=== PATIENT | female | born 2005 | race African-American/Black ===

== ENCOUNTER 2024-11-03 13:52 | Emergency (ER) | payer MEDICAID, SELFPAY ==
[2024-11-03 13:54] VITALS: BP 119/70; PULSE 86; RESP 16; TEMP 38.6; O2SAT 100; BMI 26.8
--- NOTE | 2024-11-03 14:31 | US_ITS ---
PROCEDURE: TRANSVAGINAL NON- 11/03/2024 REASON FOR EXAM: PELVIC PAIN, FEVER TECHNIQUE: Transvaginal pelvic ultrasound. Color and spectral doppler analysis of the ovaries. COMPARISON: None. FINDINGS: Measurements: Uterus: 8.8 x 3.7 x 6.7 cm for volume of 113.1 mL Endometrial Thickness: 3 mm Right Ovary: 3.3 x 1.9 x 1.9 cm for volume of 6.4 mL Left Ovary: 3.0 x 1.9 x 1.7 cm for volume of 4.9 mL Uterus: Anteverted. Normal contour and myometrial echotexture. Nabothian cysts at the cervix. Endometrium: Normal echotexture. Right ovary: Normal size and echotexture. Left ovary: Normal size and echotexture. Other adnexal findings: None. Cul-de-sac: Small volume of free fluid in the pelvis within normal limits, likely physiologic. DOPPLER: Color Doppler: Normal color flow doppler signal at both ovaries. Spectral Doppler: Normal arterial inflow and venous outflow signal at both ovaries. US/Transvaginal Non- IMPRESSION: UNREMARKABLE TRANSVAGINAL PELVIC ULTRASOUND WITH DOPPLER. Reading Location: [id number]
--- NOTE | 2024-11-03 14:32 | CT_ITS ---
PROCEDURE: ABDOMEN/PELVIS W IV CONT ONLY 11/03/2024 REASON FOR EXAM: RLQ PAIN TECHNIQUE: Abdomen and pelvis CT with intravenous contrast. Coronal and Sagittal reconstruction series were provided. CONTRAST: Isovue-300 VOLUME: 100 mL One or more dose reduction techniques were used (e.g., Automated exposure control, adjustment of the mA and/or kV according to patient size, use of iterative reconstruction technique. RADIATION DOSE SUMMARY: DLP: 524 mGycm COMPARISON: None. FINDINGS: Lung bases: Normal Liver: Normal size. No mass. Gallbladder: Normal Spleen: Normal Pancreas: Normal Adrenals: Normal Kidneys: Normal Bladder: Normal Reproductive Organs: Normal Bowel: Normal Appendix: The appendix is normal in caliber (sagittal image 65 of 155). However assessment of periappendiceal inflammatory change is limited due to lack of mesenteric fat. Lymph nodes: Enlarged right lower quadrant mesenteric lymph nodes. Vasculature: Normal Peritoneum / Retroperitoneum: Small volume free fluid in the pelvis. Bones: No acute abnormalities. CT/Abdomen/Pelvis W IV Cont ONLY IMPRESSION: Appendix is normal in caliber however, adjacent inflammation can not be assesse d due to lack of mesenteric fat. However, there are enlarged right lower quadrant mesenteric lymph nodes which can be a seconda ry sign of acute appendicitis. Small volume free fluid in the pelvis. OVERALL FINAL ASSESSMENT: . LI-RADS is not meant to be used in patients <18 years or patients with cirrhosi s due to congenital hepatic fibrosis or due to vascular disorders, because these patients have a lower chance of developing HC C. Reading Location: [place] [id number]
--- NOTE | 2024-11-03 14:33 | ED.VIS.GI ---
HPI HPI - GI History of Present Illness Chief Complaint: Abd Pain Informant: patient and parent Narrative Narrative: 3-day history. Worsening abdominal pain. Started upper quadrants last 2 days is down in the right lower quadrant. She noted some chills. She is 5 months . No abdominal surgeries in the past. She gave in [place]. Seen in urgent care had fever there was sent here for evaluation. She states she noted some dysuria that started yesterday. In addition she states she has bacterial vaginosis diagnosed clinically a week ago. She called her sr community manager sent in Flagyl however she cannot swallow the pills. She had chlamydia years ago none during . No nausea or vomiting. Normal bowel movements last time yesterday. No bloody stools. No history of similar. She took her mom's meloxicam around 11 AM. She does not eat today. She states she has been spotting since earlier this month which is increased to bleeding. Feels like her menstrual period. This is abnormal for her. Reported vaginal delivery with her baby. Prior similar symptoms: No PFSH PFSH Allergy/AdvReac Type Severity Reaction Status Date / Time No Known Allergies Allergy Verified 11/03/24 13:57 Social History Smoking Status: Unknown if ever smoked ROS ROS ED Constitutional Constitutional ED: Reports chills; Denies fever(s) or sweats ENT ENT ED: Denies sore throat Cardiovascular Cardiovascular: Denies chest pain, leg edema, palpitations or racing heartbeat Respiratory/Chest Respiratory/Chest: Denies cough, dyspnea or dyspnea on exertion Gastrointestinal Gastrointestinal: Reports abdominal pain; Denies diarrhea, nausea or vomiting Genitourinary Genitourinary ED: Reports dysuria and other Details: Vaginal discharge ; Denies hematuria or urinary frequency Musculoskeletal Musculoskeletal: Denies back pain, extremity pain or neck pain Integumentary Denies rash or wounds Neurologic Neurologic: Denies headache(s), paresthesias or weakness EXAM Physical Exam Const Vital Signs: 11/03/24 13:54 11/03/24 15:53 11/03/24 17:00 Temperature 101.5 F H Temperature Source Oral Pulse Rate 86 59 L 59 L Respiratory Rate 16 14 14 Blood Pressure 119/70 128/61 H 126/59 H Blood Pressure Mean 86 83 81 Pulse Ox 100 98 98 Oxygen Delivery Method Room Air Room Air Room Air 11/03/24 18:00 11/03/24 19:19 Temperature 97.9 F Temperature Source Pulse Rate 61 86 Respiratory Rate 14 14 Blood Pressure 122/69 H 117/73 Blood Pressure Mean 86 87 Pulse Ox 98 100 Oxygen Delivery Method Room Air Positive well nourished and well developed General Appearance ED: well developed and NAD HEENT Reports moist mucous membranes normocephalic and atraumatic Eyes General Eye ED: Yes normal appearance of both eyes Neck full ROM Chest Wall Chest: Negative for tenderness Resp normal respiratory effort and normal air movement Effort and Inspection: symmetric chest movement; Negative for respiratory distress Cardio regular rate, regular rhythm and no murmurs Peripheral Pulses: pulses 2+ throughout GI normal to inspection, nondistended, normoactive bowel sounds GI Narrative: Negative Salgado's there is tenderness right lower quadrant minimal tenderness right pelvis. Negative Rovsing's. Palpation: Negative for guarding or rebound tenderness present Narrative: [employer] Consultant by female staff: External exam with no lesions. Speculum examination pink fluid in the vault mild. No discharge noted. Swabs for wet prep and GC chlamydia obtained. Extremity normal to inspection General Extremety ED: Negative for edema or tenderness General Extremity: Negative for edema Neuro oriented x3 and no sensory deficits noted Sensorium / Orientation: awake and alert Skin no rashes or lesions noted and no wounds MDM MDM MDM Narrative Medical decision making narrative: Interventions / MDM: Differential diagnosis: Fever, abdominal pain, mesenteric adenitis Diagnosis considered but do not suspect: UTI however urine negative. Tubo-ovarian abscess however ultrasound negative, GC chlamydia negative. My EKG interpretation: N/A Imaging independently reviewed and interpreted by myself: Pelvic ultrasound: No acute process. CT abdomen pelvis IV contrast: Normal appendix no stranding, there was mesenteric adenitis read by radiology. External documents reviewed: N/A Test considered but not ordered:N/A ED course: Febrile 101.5 nontoxic blood pressure stable. No cough symptoms. Dysuria started yesterday. Pain upper abdomen 3 days ago rating down her right lower quadrant 2 days ago. Primary pain in the right lower quadrant mild pain right pelvis. Discussed with patient with her vaginosis symptoms a week ago. Additional rule out pelvic pathology. She agrees with pelvic exam this will be set up. Will send for transvaginal ultrasound edition abdominal labs with CT abdomen pelvis to rule out appendicitis. IV fluids given, p.o. Tylenol for her fever. 1510: Speculum examination pain with lock stitch channeler. Swabs were obtained and sent. Wet prep negative GC chlamydia negative urine negative. Transvaginal ultrasound negative. White count normal at 10.9. CT scan abdomen pelvis mesenteric adenitis normal appendix, per radiology however noted mesenteric lymph node could be secondary sign appendicitis. Clinically on reevaluation after Tylenol her symptoms are improved.'s only minimal symptoms. I discussed with on-call surgeon Dr. Reyes, discussed history 3 days of symptoms, discussed negative pelvic workup and CT readings. He evaluated images himself, appears to have normal appendix, we agree with 3 days of symptoms and this should declare itself. Clinically she is much more improved also. Barraza score is a 3. Plan of care discussed with patient agrees monitoring symptoms of pain worsening is developing vomiting anorexia or diarrhea, return to the ED for reevaluation for additional contrast imagings. All questions were answered. Re-evaluation: stable Disposition discussed with patient/family/significant other: Patient and mother Case discussed with consulting clinician: General Surgery This note was generated with [employer] dictation software. It may contain incorrect words, spelling, and punctuation that were not noted in checking the note before signing. Lab Data Attestation: I reviewed the patient's lab results. Labs: Laboratory Results - last 24 hr 11/03/24 11/03/24 15:25 16:13 WBC 10.9 RBC 3.49 L Hgb 11.0 L Hct 32.6 L MCV 93.4 MCH 31.5 MCHC 33.7 RDW Std Deviation 45.1 H RDW Coeff of Sharri 13.2 Plt Count 278 MPV 9.5 Immature Gran % (Auto) 0.300 Neut % (Auto) 70.2 H Lymph % (Auto) 16.7 L [place] % (Auto) 12.5 H Eos % (Auto) 0.0 Baso % (Auto) 0.3 Absolute Neuts (auto) 7.7 Absolute Lymphs (auto) 1.83 Nucleated RBC % 0 Sodium 135 Potassium 3.6 Chloride 103 Carbon Dioxide 21.7 Anion Gap 11 BUN 9 Creatinine 0.70 Estim Creat Clear Calc 109.30 Est GFR (MDRD) Non-Af 125 BUN/Creatinine Ratio 12.5 Glucose 93 Calcium 8.6 Total Bilirubin 0.35 AST 18 ALT 9 Alkaline Phosphatase 54 Total Protein 7.2 Albumin 3.8 Globulin 3.5 Albumin/Globulin Ratio 1.1 Lipase 18 Urine Color Yellow Urine Clarity Cloudy Urine pH 7.0 Ur Specific [place] 1.010 Urine Protein 30 H Urine Glucose (UA) Normal Urine Ketones Negative Urine Occult Blood 25 H Urine Nitrite Negative Urine Bilirubin 1 H Urine Urobilinogen 1 H Ur Leukocyte Esterase 25 H Urine RBC 0-5 SEEN Urine WBC 0-5 SEEN Ur Squamous Epith Cells 0-5 SEEN Urine Bacteria 0 SEEN Urine Mucus 0 SEEN Urine Test Negative Radiography Diagnostic Testing: Clinical Impression(s) from Imaging Studies Transvaginal US 11/03/24 14:31 IMPRESSION: UNREMARKABLE TRANSVAGINAL PELVIC ULTRASOUND WITH DOPPLER. Reading Location: [id number] Abdomen/Pelvis CT 11/03/24 14:32 IMPRESSION: Appendix is normal in caliber however, adjacent inflammation can not be assessed due to lack of mesenteric fat. However, there are enlarged right lower quadrant mesenteric lymph nodes which can be a secondary sign of acute appendicitis. Small volume free fluid in the pelvis. OVERALL FINAL ASSESSMENT: . LI-RADS is not meant to be used in patients <18 years or patients with cirrhosis due to congenital hepatic fibrosis or due to vascular disorders, because these patients have a lower chance of developing HCC. Reading Location: [id number] Discharge Plan Triage Chief Complaint: Abd Pain ED Provider: Feliciano Rios Dx/Rx/DC Orders Clinical Impression: Mesenteric adenitis, Abdominal pain, Fever Instructions: Abdominal Pain, ED Fever Control (Adult), ED Adenitis, Mesenteric Stand Alone Forms: ED Work / School Excuse Primary Care Provider: Care Physician,No Primary Referrals: Care Physician,No Primary [Primary Care Provider] - Puja Leija DO Bhargavi [[facility]] - 1-2 Weeks Activity Restrictions/Additional Instructions: CT scan normal appendix. Pelvic ultrasound normal. Chlamydia and gonorrhea testing negative. Negative for trichomonas or bacterial vaginosis. Urine negative for infection. CT with enlarged mesenteric lymph nodes consistent with mesenteric adenitis. Continue Tylenol and Motrin as needed. You develop worsening symptoms return to the ED for reevaluation. Print Language: Frisian Disposition Disposition: Home, Self Care Discharge Date/Time: 11/03/24 19:21
[2024-11-03] MEDS: Acetaminophen 500 MG Tablet 1000 MG PO (14:44)
[2024-11-03] MEDS: 0.9% Normal Saline (1000mL) 1,000 ML 999 ML IV (15:27)
[2024-11-03 15:40] LABS: Absolute Lymphocyte Count 1.83 X10^3/uL (0.83-4.51); Absolute Neutrophil Count 7.7 X10^3/uL (2.0-7.7); Basophil# 0.03 X10^3/uL; Basophil% 0.3 % (0-1); Hematocrit 32.6 % (37-47); Lymphocyte # 1.83 X10^3/ul (0.83-4.51); Lymphocyte % 16.7 % (19-41); Mean Corp Hgb Conc 33.7 g/dL (32-36); Mean Corpuscular Hgb 31.5 pg (27.0-32.0); Mean Corpuscular Volume 93.4 fL (81-99); Mean Platelet Vol. 9.5 fl (6.2-12.0); Monocyte# 1.37 X10^3/uL; Monocyte% 12.5 % (0-10); NRBC Flagged by Analyzer 0 % (0-5); Neutrophil # 7.68 X10^3/uL (2.7-7.7); Neutrophil % 70.2 % (47-70); Platelet Count 278 K/mm3 (150-450); RBC Distribution Width CV 13.2 % (11.6-14.6); RBC Distribution Width SD 45.1 fl (35.1-43.9); Red Blood Count 3.49 M/mm3 (4.2-5.4); White Blood Count 10.9 K/mm3 (4.4-11.0)
[2024-11-03 15:53] VITALS: BP 128/61; PULSE 59; RESP 14; O2SAT 98
[2024-11-03 16:00] LABS: ALB/GLOB Ratio 1.1 RATIO (0.9-2.4); AST(SGOT) 18 U/L (<=31); Alanine Aminotransfer ALT/SGPT 9 U/L (<=34); Albumin, Serum 3.8 g/dL (3.5-5.0); Alkaline Phosphatase 54 U/L (35-104); Anion Gap 11 (5-15); BUN 9 mg/dL (4-19); BUN/Creat Ratio 12.5 RATIO (10-20); Calcium,Total 8.6 mg/dL (7.6-11.0); Carbon Dioxide 21.7 mmol/L (21.0-32.0); Chloride 103 mmol/L (98-108); EST Glomerular Filtration Rate 125 (>60); Globulin 3.5 g/dL (2.2-4.2); Glucose 93 mg/dL (70-99); Lipase 18 U/L (13-75); Potassium 3.6 mmol/L (3.3-5.1); Protein, Total 7.2 g/dL (5.9-8.4); Sodium Level 135 mmol/L (133-145); Total Bilirubin 0.35 mg/dL (0.00-1.30)
[2024-11-03 16:25] LABS: Bacteria 0 SEEN /hpf (None Seen); Mucous, Urine 0 SEEN /hpf (<or=2+)
[2024-11-03 16:34] LABS: Color, Urine Yellow (Yellow); Glucose, Dipstick Normal (Normal); Ketone-Dipstick Negative (Negative); Leukocyte Esterase-Dipstick 25 /ul (Negative); Nitrite-Dipstick Negative (Negative); Occult Blood-Urine 25 /ul (Negative); Protein-Dipstick 30 mg/dl (Negative); Urine Clarity Cloudy (Clear); Urine Urobilinogen 1 mg/dl (Normal)
[2024-11-03 16:48] LABS: Urine Bilirubin Dipstick 1 mg/dL (Negative)
[2024-11-03 16:58] LABS: Internal QC Validated? YES +Cl - CLEAR BKGD
[2024-11-03 16:59] LABS: Pregnancy, Urine Negative Negative; Record Kit Lot#,Urine Preg 947241
[2024-11-03 17:00] VITALS: BP 126/59; PULSE 59; RESP 14; O2SAT 98
[2024-11-03 17:07] LABS: Red Blood Cells-Urine 0-5 SEEN /hpf (0-5); Squamous Epithelial Cells - UA 0-5 SEEN /hpf (5-10); White Blood Cells 0-5 SEEN /hpf (0-5)
[2024-11-03 18:00] VITALS: BP 122/69; PULSE 61; RESP 14; O2SAT 98
--- NOTE | 2024-11-03 18:12 | CM.ED ---
Social work Reason for referral: no PCP Referral source: case find This SW identified patient's lack of PCP and need for resources. SW entered patient's room, introducing self and role at [facility]. Patient welcomed SW visit and patient's child was asleep on the bed in patient's lap. Patient's mother was bedside and patient gave permission to speak in front of patient's mother. Patient confirmed needing a PCP and accepted resources of [facility] Provider Directory and Glenna Goodwin information. Patient denied further needs at this time. Alma Roman, [employer]ANT, FUEL HANDLER
[2024-11-03 19:19] VITALS: BP 117/73; PULSE 86; RESP 14; TEMP 36.6; O2SAT 100
== END 2024-11-03 19:21 | disposition home or self-care (01) ==
PROVIDERS: Emergency Provider Emergency Medicine; Visit Provider Emergency Medicine
DX: I88.0 Nonspecific mesenteric lymphadenitis (principal); R50.9 Fever, unspecified; R10.9 Unspecified abdominal pain
CPT/HCPCS: 74177; 76830; 80053; 81001; 81025; 83690; 85025; 87210; 87491; 87591; 96360; 96361; 99284; Q9967; A4216